=== PATIENT | female | born 1990 | race Caucasian/White ===

== ENCOUNTER 2016-10-02 07:33 | Emergency (ER) | payer OTHER ==
[~2016-10-02] VITALS: Ht 162.6 cm; Wt 54.0 kg
[2016-10-02 07:38] VITALS: BP 131/94; PULSE 119; RESP 16; TEMP 99.4; O2SAT 98
[2016-10-02] MEDS ORDERED: SODIUM CHLOR 0.9% 1000 ML INJ 1,000 ML IV SCH (07:52)
[2016-10-02] MEDS ORDERED: ZOFR4TAB PO (07:55)
[2016-10-02] MEDS ORDERED: MORPHINE SULFATE 8 MG/ML INJ IV PUSH ONE (08:00)
[2016-10-02] MEDS ORDERED: ONDANSETRON HCL 4 MG/2 ML VIAL IVP ONE (08:00)
--- NOTE | 2016-10-02 08:02 | PD ---
HPI Chief Complaint: Abdominal Pain Time Seen by Provider: 07:48 Travel History International Travel<30 days: No Contact w/Intl Traveler<30days: No Traveled to known affect area: No History of Present Illness HPI Patient is a 25-year-old female who presents to emergency room with complaints of abdominal pain and flank pain. Patient reports that 3 days ago she began to have lower abdominal pain, reports that the pain is located at her lower mid abdomen around her bladder. Patient reports no nausea or vomiting with her symptoms, reports that she has been having diarrhea for the past few days. She reports that her whole family is sick with a gastrointestinal bug. Patient denies any fevers or chills. Patient reports dysuria along with urinary urgency. Patient denies any hematuria, urinary frequency or hesitancy. Patient denies any vaginal discharge at this time. PFSH Past Medical History Diminished Hearing: No Gastrointestinal Disorders: Yes Immunizations Current: Yes Shingles: Yes Tetanus Vaccination: < 5 Years Influenza Vaccination: Yes ?: Not LMP: 09/12/2016 : 0 Ovarian Cysts: Yes Past Surgical History Oral Surgery: Yes (wisdom teeth) Social History Alcohol Use: Yes (OCCAISIONAL) Tobacco Use: No Substance Use: No Allergies-Medications (Allergen,Severity, Reaction): Coded Allergies: Amoxicillin (Verified Allergy, Severe, HIVES AND SOB, 10/02/16) Guinea Pig Epithelium (Unverified Allergy, Severe, Anaphylaxis, 10/02/16) Penicillin (Verified Allergy, Severe, HIVES AND SOB, 10/02/16) Reported Meds & Prescriptions Reported Meds & Active Scripts Active Ibuprofen 600 Mg Tab 600 Mg PO Q6H PRN Levaquin (Levofloxacin) 500 Mg Tablet 500 Mg PO DAILY 7 Days Reported Zofran (Ondansetron HCl) 4 Mg Tab 4 Mg PO Q8HR PRN Review of Systems General / Constitutional: No: Fever Eyes: No: Visual changes HENT: No: Headaches Cardiovascular: No: Chest Pain or Discomfort Respiratory: No: Shortness of Breath Gastrointestinal: Positive: Diarrhea, Abdominal Pain, No: Nausea, Vomiting Genitourinary: Positive: Frequency, Hesitancy, No: Dysuria Musculoskeletal: No: Pain Skin: No Rash Neurologic: No: Weakness Psychiatric: No: Depression Endocrine: No: Polydipsia Hematologic/Lymphatic: No: Easy Bruising Physical Exam Narrative GENERAL: Moderate distress SKIN: Focused skin assessment warm/dry. HEAD: Atraumatic. Normocephalic. ENT: Mucous membranes pink and moist. NECK: Trachea midline. No JVD. CARDIOVASCULAR: Regular rate and rhythm. No murmur appreciated. RESPIRATORY: No accessory muscle use. Clear to auscultation. Breath sounds equal bilaterally. GASTROINTESTINAL: Abdomen soft, patient with increased tenderness to lower mid abdomen, no rebound or guarding with exam, no pain to right lower quadrant or left lower quadrant or pelvic pain MUSCULOSKELETAL: No obvious deformities. No clubbing. No cyanosis. No edema. NEUROLOGICAL: Awake and alert. No obvious cranial nerve deficits. Motor grossly within normal limits. Normal speech. PSYCHIATRIC: Appropriate mood and affect; insight and judgment normal. Data Data Last Documented VS Vital Signs Date Time Temp Pulse Resp B/P Pulse Ox O2 Delivery O2 Flow Rate FiO2 10/02/16 08:45 90 16 114/78 100 Room Air 10/02/16 07:38 99.4 Orders Complete Blood Count With Diff (10/02/16 07:52) Comprehensive Metabolic Panel (10/02/16 07:52) Lipase (10/02/16 07:52) Prothrombin Time / Inr (Pt) (10/02/16 07:52) Act Partial Throm Time (Ptt) (10/02/16 07:52) Urinalysis - C+S If Indicated (10/02/16 07:52) Ct Abd/Pel W Iv Contrast(Rout) (10/02/16 07:52) Iv Access Insert/Monitor (10/02/16 07:52) Ondansetron Inj (Zofran Inj) (10/02/16 08:00) Sodium Chlor 0.9% 1000 Ml Inj (Ns 1000 M (10/02/16 07:52) Sodium Chloride 0.9% Flush (Ns Flush) (10/02/16 08:00) Ed Urine Pregnancytest Poc (10/02/16 07:52) Morphine Inj (Morphine Inj) (10/02/16 08:00) Urine Culture (10/02/16 07:50) Levofloxacin 500 Mg Premix Inj (Levaquin (10/02/16 08:45) Iohexol 350 Inj (Omnipaque 350 Inj) (10/02/16 09:16) Gc And Chlamydia Pcr (10/02/16 09:24) Sodium Chlor 0.9% 1000 Ml Inj (Ns 1000 M (10/02/16 09:30) Labs Laboratory Tests Test 10/02/16 10/02/16 07:50 08:00 Urine Collection Type CLEAN CATCH Urine Color YELLOW Urine Turbidity CLEAR Urine pH 6.0 Urine Specific [place] 1.008 Urine Protein NEG mg/dL Urine Glucose (UA) NEG mg/dL Urine Ketones NEG mg/dL Urine Occult Blood NEG Urine Nitrite POS Urine Bilirubin NEG Urine Leukocyte Esterase TRACE Urine WBC 3-5 /hpf Urine Bacteria MANY /hpf Microscopic Urinalysis Comment CULTURE INDICATED White Blood Count 9.0 TH/MM3 Red Blood Count 4.24 MIL/MM3 Hemoglobin 11.8 GM/DL Hematocrit 36.0 % Mean Corpuscular Volume 84.8 FL Mean Corpuscular Hemoglobin 27.8 PG Mean Corpuscular Hemoglobin 32.8 % Concent Red Cell Distribution Width 12.4 % Platelet Count 260 TH/MM3 Mean Platelet Volume 7.4 FL Neutrophils (%) (Auto) 81.7 % Lymphocytes (%) (Auto) 8.8 % Monocytes (%) (Auto) 6.4 % Eosinophils (%) (Auto) 2.2 % Basophils (%) (Auto) 0.9 % Neutrophils # (Auto) 7.3 TH/MM3 Lymphocytes # (Auto) 0.8 TH/MM3 Monocytes # (Auto) 0.6 TH/MM3 Eosinophils # (Auto) 0.2 TH/MM3 Basophils # (Auto) 0.1 TH/MM3 CBC Comment DIFF FINAL Differential Comment Prothrombin Time 11.0 SEC Prothromb Time International 1.0 RATIO Ratio Activated Partial 28.9 SEC Thromboplast Time Sodium Level 140 MEQ/L Potassium Level 3.7 MEQ/L Chloride Level 103 MEQ/L Carbon Dioxide Level 26.7 MEQ/L Anion Gap 10 MEQ/L Blood Urea Nitrogen 9 MG/DL Creatinine 0.61 MG/DL Estimat Glomerular Filtration 120 ML/MIN Rate Random Glucose 86 MG/DL Calcium Level 8.5 MG/DL Total Bilirubin 0.4 MG/DL Aspartate Amino Transf 12 U/L (AST/SGOT) Alanine Aminotransferase 12 U/L (ALT/SGPT) Alkaline Phosphatase 54 U/L Total Protein 7.4 GM/DL Albumin 3.6 GM/DL Lipase 124 U/L MDM Medical Decision Making Medical Screen Exam Complete: Yes Emergency Medical Condition: Yes Interpretation(s) Vital Signs Date Time Temp Pulse Resp B/P Pulse Ox O2 Delivery O2 Flow Rate FiO2 10/02/16 07:48 16 10/02/16 07:38 99.4 119 16 131/94 98 Differential Diagnosis Differential for abdominal pain could be secondary to cystitis versus pyelonephritis versus appendicitis versus colitis versus gastroenteritis versus ovarian cyst versus cervicitis Narrative Course Patient is a 25 year old female who presents to ER with complaints of lower abdominal pain since Saturday. Reports that pain has been constant and unrelenting with associated diarrhea. Denies fever/chills. Patient is uncomfortable on exam, plan to obtain blood work and UA as well as ct of abdomen and pelvis. Plan to give IVF as well as antiemetics and pain medications. Patient re-evaluated, patient comfortable at this time. Reports that she is feeling better. CBC & BMP Diagram 10/02/16 08:00 UA: positive for nitrites, positive for trace leuk esterase, positive for many bacteria - UC sent, will give dose of IV antibiotics. Last Impressions Abdomen/Pelvis CT 10/02/16 0752 Signed Impressions: Service Date/Time: Sunday, October 02, 2016 08:43 - CONCLUSION: 1. Bilateral ovarian masses including a right ovarian cyst and probable hemorrhagic cyst left ovary with high attenuation free fluid in the pelvis likely hemorrhage. Marcus Mcnamara MD CT reviewed, patient with b/l ovarian masses including right ovarian cyst and probable hemorrhagic cyst the left ovary with free fluid in the pelvis most likely hemorrhage. Symptoms have been on going for the past 3 days. Patient's hemoglobin is stable this time, hemoglobin is 11.8. Reviewed CT report with patient in detail, I do not suspect ovarian torsion as patient does have a small ovarian cyst which is 2 cm in size to her right ovary, there is a 2.3 x 2.4 cm hypertension was ovarian mass suspected to be possible hemorrhagic cyst. (Copy of radiology report was given to patient as she will need to follow up with all findings from today). Patient's pain most likely from UTI versus hemorrhagic ovarian cyst causing her pain. Patient will be treated for her UTI and pain from ovarian cyst. A copy of her radiology report was given to her at discharge. Patient understands need to follow up with her correction officer head. Signs and symptoms of an acute abdomen was reviewed with patient in detail. Patient will follow up with all cultures from today. Pelvic exam was offered to patient - patient defers this at this time as she denies any vaginal discharge/ bleeding. Patient understands need to return to ER or to her PCP's office in 24 hours for re-evaluation of her symptoms. If she has signs and symptoms of acute abdomen, she will return to ER immediately. Patient thankful for care. Diagnosis Primary Impression: Abdominal pain Qualified Code: R10.33 - Periumbilical abdominal pain Additional Impressions: UTI (urinary tract infection) Qualified Code: N30.00 - Acute cystitis without hematuria Mass, ovarian Ovarian cyst Hemorrhagic cyst of left ovary Patient Instructions: General Instructions, Narcotic given in the ED Departure Forms: Tests/Procedures, Work Release Enter return to work date: Oct 04, 2016 Additional Instructions: Return to ER as needed of if symptoms worsen or progress or if you develop fever /chills, nausea or vomiting Please follow up with all cultures from today Please follow up with your primary care doctor in 24 hours Please take all antibiotics as prescribed Please follow up with your correction officer head as soon as possible, bring the copy of your radiology report to your doctor's office for follow up Med/Other Pt SpecificInfo: Prescription(s) given Scripts Acetaminophen-Codeine (Tylenol-Codeine #3)300-30 mg Tab1 Tab PO Q6HR NEB PRN ( PAIN) 2 Days Ref 0 Prov:Aby Jacob DO 10/02/16 Ibuprofen 600 Mg [id number] Mg PO Q6H PRN (Pain/Inflammation) #40 TAB Ref 0 Prov:bAy Jacob DO 10/02/16 Levofloxacin (Levaquin)500 Mg [id number] Mg PO DAILY 7 Days Prov:Aby Jacob DO 10/02/16 Disposition: 01 DISCHARGE HOME Condition: Stable Aby Jacob DO Oct 02, 2016 08:02
[2016-10-02] MEDS: SODIUM CHLORIDE 0.9% FLUSH 10 ML FLUSH IV FLUSH PRN ×2 (08:10→09:05)
[2016-10-02 08:12] LABS: AUTOMATED NEUTROPHIL # 7.3 TH/MM3 (1.8-7.7); BASOPHIL # 0.1 TH/MM3 (0-0.2); BASOPHIL % 0.9 % (0.0-2.0); EOSINOPHIL # 0.2 TH/MM3 (0-0.4); EOSINOPHIL % 2.2 % (0.0-4.0); LYMPH % 8.8 % (9.0-44.0); LYMPHOCYTE # 0.8 TH/MM3 (1.0-4.8); MEAN CELL VOLUME 84.8 FL (80.0-100.0); MEAN CORPUSCULAR HEMOGLOBIN 27.8 PG (27.0-34.0); MEAN CORPUSCULAR HGB CONC 32.8 % (32.0-36.0); MONO % 6.4 % (0.0-8.0); NEUT % 81.7 % (16.0-70.0); PLATELET COUNT 260 TH/MM3 (150-450); RED BLOOD COUNT 4.24 MIL/MM3 (4.00-5.30); RED CELL DISTRIBUTION WIDTH 12.4 % (11.6-17.2)
[2016-10-02] MEDS ORDERED: TETANUS/DIPHTHERIA TOXOID ADULT 0.5 ML VIAL IM ONE (08:15)
[2016-10-02] MEDS ORDERED: PIPERACIL-TAZO 3.375 GM PREMIX 50 ML IV ONE (08:15)
[2016-10-02] MEDS ORDERED: VANCOMYCIN INJ 800 MG in SODIUM CHLOR 0.9% 250 ML INJ 250 ML IV ONE (08:15)
[2016-10-02 08:16] LABS: BLOOD, URINE NEG (NEG); GLUCOSE,URINE NEG (NEG); KETONE, URINE NEG (NEG)
[2016-10-02 08:16] LABS: HEMO FLAGS DIFF FINAL
[2016-10-02 08:19] LABS: NITRITE,URINE POS (NEG)
[2016-10-02 08:22] LABS: CHLORIDE 103 MEQ/L (98-107); POTASSIUM 3.7 MEQ/L (3.5-5.1); SODIUM (NA) 140 MEQ/L (136-145)
[2016-10-02 08:25] LABS: BACTERIA, URINE MANY /hpf; COMMENT (UR) CULTURE INDICATED; CULTURE IF INDICATED CULTURE INDICATED; METHOD OF COLLECTION CLEAN CATCH; URINE COLOR YELLOW (YELLW/STRAW)
[2016-10-02 08:26] LABS: ANION GAP 10 MEQ/L (5-15); APTT (PATIENT) 28.9 SEC (24.3-30.1); BICARBONATE 26.7 MEQ/L (21.0-32.0); BLOOD UREA NITROGEN 9 MG/DL (7-18)
[2016-10-02 08:29] LABS: ALT (GPT) 12 U/L (10-53); AST (GOT) 12 U/L (15-37); GLOMERULAR FILTRATION RATE 120 ML/MIN (>89)
[2016-10-02 08:30] LABS: TOTAL BILIRUBIN ADULT 0.4 MG/DL (0.2-1.0)
[2016-10-02 08:31] LABS: ALKALINE PHOSPHATASE 54 U/L (45-117)
[2016-10-02 08:45] VITALS: BP 114/78; PULSE 90; RESP 16; O2SAT 100
[2016-10-02] MEDS ORDERED: LEVOFLOXACIN 500 MG PREMIX INJ 100 ML IV ONE (08:45)
[2016-10-02] MEDS ORDERED: LEVA500T20 PO (09:01)
[2016-10-02] MEDS ORDERED: IBUP-232 PO (09:01)
[2016-10-02] MEDS ORDERED: IOHEXOL 350 MG/ML 10 ML VIAL (for RAD DIAG) IV ONE (09:16)
--- NOTE | 2016-10-02 09:18 | RADRPT ---
EXAM DATE/TIME: 10/02/2016 08:43 [facility] COMPARISON: CT ABDOMEN & PELVIS W CONTRAST, July 25, 2014, 11:22. INDICATIONS : Lower abdomen pain for three days. IV CONTRAST: 65 cc Omnipaque 350 (iohexol) IV ORAL CONTRAST: No oral contrast ingested. RADIATION DOSE: 4.97 CTDIvol (mGy) MEDICAL HISTORY : None SURGICAL HISTORY : None. ENCOUNTER: Initial ACUITY: 3 days PAIN SCALE: 8/10 LOCATION: Abdomen TECHNIQUE: Volumetric scanning of the abdomen and pelvis was performed. Using automated exposure control and ad justment of the mA and/or kV according to patient size, radiation dose was kept as low as reasonably achievable to obtain optimal diagnostic quality images. DICOM format image data is available electro nically for review and comparison. FINDINGS: LOWER LUNGS: The visualized lower lungs are clear. LIVER: Homogeneous density without lesion. There is no dilation of the biliary tree. No calcified gallston es. SPLEEN: Normal size without lesion. PANCREAS: Within normal limits. KIDNEYS: Normal in size and shape. There is no mass, stone or hydronephrosis. ADRENAL GLANDS: Within normal limits. VASCULAR: There is no aortic aneurysm. BOWEL/MESENTERY: The stomach, small bowel, and colon demonstrate no acute abnormality. There is no free intraperitone al air. ABDOMINAL WALL: Within normal limits. RETROPERITONEUM: There is no lymphadenopathy. BLADDER: No wall thickening or mass. REPRODUCTIVE: 2 cm right ovarian cyst and 2.3 x 2.4 cm hypodense left ovarian mass suspected possibly a hemorrhagic cyst. There is hemorrhagic free fluid in the pelvis. Uterus unremarkable. INGUINAL: There is no lymphadenopathy or hernia. MUSCULOSKELETAL: Within normal limits for patient age. CONCLUSION: 1. Bilateral ovarian masses including a right ovarian cyst and probable hemorrhagic cyst left ovary w ith high attenuation free fluid in the pelvis likely hemorrhage. Marcus Mcnamara MD on October 02, 2016 at 9:13 Board Certified Radiologist. This report was verified electronically.
[2016-10-02] MEDS ORDERED: SODIUM CHLOR 0.9% 1000 ML INJ 1,000 ML IV ONE (09:30)
[2016-10-02] MEDS ORDERED: TYLETAB34 PO (09:46)
[2016-10-02 10:27] VITALS: BP 119/80
[2016-10-02 17:18] LABS: CHLAMYDIA PCR NOT DETECTED (NOT DETECT); NEISSERIA PCR NOT DETECTED (NOT DETECT)
== END 2016-10-02 10:38 | disposition home or self-care (01) ==
LOC: PHED 07:33
DX: R10.33 Periumbilical pain (principal); N30.00 Acute cystitis without hematuria; N83.202 Unspecified ovarian cyst, left side; B96.29 Other Escherichia coli [E. coli] as the cause of diseases classified elsewhere
CPT/HCPCS: 74177; 80053; 81001; 83690; 84703; 85025; 85610; 85730; 87077; 87086; 87186; 87491; 87591; 96361; 96365; 96375; 99285; J1956; J2270; J2405; J7030; Q9967